=== PATIENT | male | born 1995 | race Caucasian/White ===

== ENCOUNTER → 2022-01-26 | Outpatient (REF) | payer BC ==
[2022-01-26 09:42] LABS: SEMEN APPEARANCE OPAQUE (OPAQUE); SEMEN VISCOSITY LIQUID (LIQUID); SEMEN VOLUME 3.5 ml (2.0-5.0); SPERM CONCENTRATION 43.5 M/ml (>=15.0); WBC CONCENTRATION <=1 M/ml (<=1 M/ml)
== END ==
LOC: M SFHCWAGY 09:03
PROVIDERS: ATTEND Advanced Practice Midwife
DX: Z31.41 Encounter for fertility testing (principal)